=== PATIENT | female | born 1970 | race Caucasian/White ===

== ENCOUNTER 2017-10-15 17:44 | Inpatient (IN) | payer MEDICAID ==
[~2017-10-15] VITALS: Ht 154.9 cm; Wt 100.6 kg
[2017-10-15 19:43] LABS: PLATELET COUNT 286 x10^3mcL (130-400)
[2017-10-15 19:58] LABS: CALCIUM 7.7 mg/dL (8.5-10.1); CARBON DIOXIDE 20.9 mmol/L (21-32); CREATININE SERUM 1.5 mg/dL (0.6-1.0); POTASSIUM SERUM 3.5 mmol/L (3.5-5.1)
[2017-10-15 20:02] LABS: BILIRUBIN TOTAL 0.4 mg/dL (0.20-1.00); TOTAL PROTEIN, SERUM 6.4 g/dL (6.4-8.2)
[2017-10-15 20:03] LABS: ALBUMIN 2.3 g/dL (3.4-5.0)
[2017-10-15 20:16] LABS: RED CELL DISTRIBUTION WIDTH 17.4 % (11.5-14.5)
[2017-10-15 20:58] LABS: MONOCYTE 11 % (0-7); SEGMENTED NEUTROPHILS 82 % (37-75)
[2017-10-15 20:59] LABS: rbc morphology (normal/abnorm) ABNORMAL (NORMAL)
[2017-10-15 22:18] VITALS: BP 103/48
[2017-10-15 22:20] LABS: MAGNESIUM 1.5 mg/dL (1.8-2.4); PHOSPHOROUS 4.1 mg/dL (2.5-4.9)
[2017-10-15 22:28] LABS: T3 TOTAL 1.15 ng/mL
[2017-10-15 22:34] LABS: CHOLESTEROL/HDL RATIO 12.5
[2017-10-15 22:55] LABS: FREE T4 1.89 ng/dL (0.76-1.46); FREE THYROXINE INDEX 4.4 ug/dL (1.4-4.5); T4(THYROXINE) 12.6 ug/dL (4.7-13.3)
[2017-10-16] VITALS (10 sets, daily range): BP systolic 91–114; BP diastolic 32–69
[2017-10-16 06:42] LABS: CALCIUM 7.6 mg/dL (8.5-10.1); CARBON DIOXIDE 21.6 mmol/L (21-32); CREATININE SERUM 1.7 mg/dL (0.6-1.0)
[2017-10-16 07:47] LABS: UA SPECIFIC GRAVITY >=1.030 (1.005-1.035); microscopic required? YES; urine erythrocyte NEGATIVE (NEGATIVE)
[2017-10-16 07:57] LABS: PLATELET COUNT 345 x10^3mcL (130-400)
[2017-10-16 07:58] LABS: RED CELL DISTRIBUTION WIDTH 17.7 % (11.5-14.5)
[2017-10-16 08:14] LABS: AMPHETAMINE QUAL UR NONE DETECTED (NEG <=1000)
[2017-10-16 11:00] LABS: BASOPHIL 0 % (0-2); METAMYELOCTE 13 % (0-2); SEGMENTED NEUTROPHILS 23 % (37-75)
[2017-10-16 11:01] LABS: BAND NEUTROPHIL 55 % (0-10); MONOCYTE 2 % (0-7)
[2017-10-16 11:03] LABS: rbc morphology (normal/abnorm) ABNORMAL (NORMAL)
[2017-10-16 11:05] LABS: burr cell (echinocyte) 1+; target cell (codocyte) 1+
[2017-10-17] VITALS (10 sets, daily range): BP systolic 80–138; BP diastolic 33–80
[2017-10-17 04:35] LABS: PLATELET COUNT 368 x10^3mcL (130-400)
[2017-10-17 04:37] LABS: RED CELL DISTRIBUTION WIDTH 18.3 % (11.5-14.5)
[2017-10-17 04:41] LABS: CALCIUM 7.6 mg/dL (8.5-10.1); CARBON DIOXIDE 18.1 mmol/L (21-32); CREATININE SERUM 1.9 mg/dL (0.6-1.0); POTASSIUM SERUM 4.4 mmol/L (3.5-5.1)
[2017-10-17 05:00] LABS: BAND NEUTROPHIL 70 % (0-10); MONOCYTE 5 % (0-7); SEGMENTED NEUTROPHILS 20 % (37-75); rbc morphology (normal/abnorm) ABNORMAL (NORMAL)
[2017-10-17 05:01] LABS: PLATELET MORPHOLOGY PLATELETS NORMAL
[2017-10-17 06:52] LABS: MAGNESIUM 1.6 mg/dL (1.8-2.4); PHOSPHOROUS 5.8 mg/dL (2.5-4.9)
[2017-10-17 07:20] LABS: RED BLOOD CELLS 4.28 M/mm3 (4.10-5.10)
[2017-10-17 13:45] LABS: IRON 15 ug/dL (50-170); TOTAL IRON BINDING CAPACITY 185 ug/dL (250-450)
[2017-10-18] VITALS (17 sets, daily range): BP systolic 109–137; BP diastolic 52–85; Ht 154.9 cm; Wt 100.6 kg
[2017-10-18 05:59] LABS: CALCIUM 7.3 mg/dL (8.5-10.1); CARBON DIOXIDE 24.5 mmol/L (21-32); CREATININE SERUM 1.2 mg/dL (0.6-1.0); MAGNESIUM 2.8 mg/dL (1.8-2.4); PHOSPHOROUS 2.8 mg/dL (2.5-4.9); POTASSIUM SERUM 3.9 mmol/L (3.5-5.1)
[2017-10-18 06:00] LABS: PLATELET COUNT 274 x10^3mcL (130-400)
[2017-10-18 06:14] LABS: RED CELL DISTRIBUTION WIDTH 17.9 % (11.5-14.5)
[2017-10-18 08:21] LABS: BAND NEUTROPHIL 8 % (0-10); BASOPHIL 0 % (0-2); MONOCYTE 2 % (0-7)
[2017-10-18 08:23] LABS: SEGMENTED NEUTROPHILS 78 % (37-75)
[2017-10-18 08:24] LABS: PLATELET MORPHOLOGY PLATELETS NORMAL
[2017-10-18 08:25] LABS: rbc morphology (normal/abnorm) ABNORMAL (NORMAL)
[2017-10-18 08:26] LABS: target cell (codocyte) 1+
[2017-10-19] VITALS (13 sets, daily range): BP systolic 107–142; BP diastolic 51–75
[2017-10-19 05:19] LABS: CALCIUM 7.2 mg/dL (8.5-10.1); CARBON DIOXIDE 27.6 mmol/L (21-32); CHLORIDE SERUM 110 mmol/L (98-107); CREATININE SERUM 0.9 mg/dL (0.6-1.0); GFR1 > 60 mL/min; GLUCOSE SERUM 152 mg/dL (74-106); MAGNESIUM 2.6 mg/dL (1.8-2.4); PHOSPHOROUS 2.4 mg/dL (2.5-4.9); PLATELET COUNT 288 x10^3mcL (130-400); POTASSIUM SERUM 3.5 mmol/L (3.5-5.1); RED CELL DISTRIBUTION WIDTH 17.6 % (11.5-14.5); SODIUM SERUM 142 mmol/L (136-145)
[2017-10-19 09:00] LABS: BAND NEUTROPHIL 3 % (0-10); BASOPHIL 0 % (0-2); MONOCYTE 1 % (0-7); SEGMENTED NEUTROPHILS 91 % (37-75)
[2017-10-19 09:02] LABS: rbc morphology (normal/abnorm) ABNORMAL (NORMAL); schistocyte (helmet cell) 1+; target cell (codocyte) 3+
[2017-10-19 09:03] LABS: PLATELET MORPHOLOGY PLATELETS NORMAL
[2017-10-20 03:10] VITALS: BP 133/64
[2017-10-20 04:58] LABS: CALCIUM 7.8 mg/dL (8.5-10.1); CARBON DIOXIDE 30.2 mmol/L (21-32); CHLORIDE SERUM 108 mmol/L (98-107); CREATININE SERUM 0.8 mg/dL (0.6-1.0); GFR1 > 60 mL/min; GLUCOSE SERUM 151 mg/dL (74-106); MAGNESIUM 1.8 mg/dL (1.8-2.4); PHOSPHOROUS 3.5 mg/dL (2.5-4.9); POTASSIUM SERUM 3.5 mmol/L (3.5-5.1); SODIUM SERUM 143 mmol/L (136-145)
[2017-10-20 04:59] LABS: PLATELET COUNT 295 x10^3mcL (130-400)
[2017-10-20 05:52] VITALS: BP 114/54
[2017-10-20 05:56] LABS: RED CELL DISTRIBUTION WIDTH 18.1 % (11.5-14.5)
[2017-10-20 06:02] LABS: BAND NEUTROPHIL 4 % (0-10); BASOPHIL 0 % (0-2); METAMYELOCTE 1 % (0-2); MONOCYTE 6 % (0-7); SEGMENTED NEUTROPHILS 76 % (37-75); rbc morphology (normal/abnorm) ABNORMAL (NORMAL)
[2017-10-20 06:04] LABS: PLATELET MORPHOLOGY PLATELETS NORMAL; target cell (codocyte) 3+
[2017-10-20 08:34] VITALS: BP 127/73
[2017-10-20 13:00] VITALS: BP 113/60
[2017-10-20 17:03] VITALS: BP 126/50
[2017-10-20 20:55] VITALS: BP 117/53
[2017-10-21 05:40] VITALS: BP 133/58
[2017-10-21 07:50] LABS: CALCIUM 8.4 mg/dL (8.5-10.1); CARBON DIOXIDE 27.5 mmol/L (21-32); CHLORIDE SERUM 104 mmol/L (98-107); CREATININE SERUM 0.7 mg/dL (0.6-1.0); GFR1 > 60 mL/min; GLUCOSE SERUM 126 mg/dL (74-106); POTASSIUM SERUM 3.8 mmol/L (3.5-5.1); SODIUM SERUM 139 mmol/L (136-145)
[2017-10-21 08:03] LABS: PLATELET COUNT 296 x10^3mcL (130-400)
[2017-10-21 08:07] LABS: RED CELL DISTRIBUTION WIDTH 17.7 % (11.5-14.5)
[2017-10-21 08:38] VITALS: BP 132/54
[2017-10-21 11:29] LABS: BAND NEUTROPHIL 5 % (0-10); BASOPHIL 0 % (0-2); MONOCYTE 6 % (0-7); MYELOCYTE 2 % (0-2); SEGMENTED NEUTROPHILS 73 % (37-75); rbc morphology (normal/abnorm) ABNORMAL (NORMAL); target cell (codocyte) 1+
[2017-10-21 11:30] LABS: schistocyte (helmet cell) 1+
[2017-10-21 17:45] VITALS: BP 133/45
[2017-10-21 20:57] VITALS: BP 123/47
[2017-10-22 04:51] VITALS: BP 116/41
[2017-10-22 07:01] LABS: PLATELET COUNT 342 x10^3mcL (130-400)
[2017-10-22 07:10] LABS: CALCIUM 7.9 mg/dL (8.5-10.1); CARBON DIOXIDE 29.2 mmol/L (21-32); CHLORIDE SERUM 100 mmol/L (98-107); CREATININE SERUM 0.6 mg/dL (0.6-1.0); GFR1 > 60 mL/min; GLUCOSE SERUM 107 mg/dL (74-106); MAGNESIUM 1.7 mg/dL (1.8-2.4); PHOSPHOROUS 3.4 mg/dL (2.5-4.9); POTASSIUM SERUM 4.2 mmol/L (3.5-5.1); SODIUM SERUM 135 mmol/L (136-145)
[2017-10-22 07:16] LABS: RED CELL DISTRIBUTION WIDTH 17.5 % (11.5-14.5)
[2017-10-22 09:22] VITALS: BP 112/42
[2017-10-22 09:34] LABS: BAND NEUTROPHIL 10 % (0-10); BASOPHIL 0 % (0-2); MONOCYTE 6 % (0-7); SEGMENTED NEUTROPHILS 77 % (37-75)
[2017-10-22 09:39] LABS: rbc morphology (normal/abnorm) ABNORMAL (NORMAL); target cell (codocyte) 2+
[2017-10-22 09:40] LABS: PLATELET MORPHOLOGY GIANT PLATELET SEEN
[2017-10-22 17:45] VITALS: BP 118/50
[2017-10-22 21:23] VITALS: BP 116/59
[2017-10-23 06:00] VITALS: BP 109/69
[2017-10-23 07:01] LABS: CARBON DIOXIDE 29.6 mmol/L (21-32); CHLORIDE SERUM 101 mmol/L (98-107); CREATININE SERUM 0.7 mg/dL (0.6-1.0); GFR1 > 60 mL/min; GLUCOSE SERUM 100 mg/dL (74-106); MAGNESIUM 2.6 mg/dL (1.8-2.4); PHOSPHOROUS 3.6 mg/dL (2.5-4.9); POTASSIUM SERUM 4.5 mmol/L (3.5-5.1); SODIUM SERUM 135 mmol/L (136-145)
[2017-10-23 07:32] LABS: PLATELET COUNT 444 x10^3mcL (130-400); RED CELL DISTRIBUTION WIDTH 17.6 % (11.5-14.5)
[2017-10-23 10:22] LABS: BAND NEUTROPHIL 11 % (0-10); BASOPHIL 0 % (0-2); METAMYELOCTE 2 % (0-2); MONOCYTE 7 % (0-7); SEGMENTED NEUTROPHILS 68 % (37-75)
[2017-10-23 10:23] LABS: rbc morphology (normal/abnorm) ABNORMAL (NORMAL)
[2017-10-23 10:24] LABS: target cell (codocyte) 1+
[2017-10-23 16:53] VITALS: BP 137/79
[2017-10-23 22:00] VITALS: BP 132/45
[2017-10-24 05:25] VITALS: BP 111/37
[2017-10-24 06:24] LABS: CALCIUM 7.6 mg/dL (8.5-10.1); CARBON DIOXIDE 28.1 mmol/L (21-32); CHLORIDE SERUM 105 mmol/L (98-107); CREATININE SERUM 0.6 mg/dL (0.6-1.0); GFR1 > 60 mL/min; GLUCOSE SERUM 99 mg/dL (74-106); POTASSIUM SERUM 4.2 mmol/L (3.5-5.1); SODIUM SERUM 139 mmol/L (136-145)
[2017-10-24 07:12] LABS: PLATELET COUNT 577 x10^3mcL (130-400); RED CELL DISTRIBUTION WIDTH 17.4 % (11.5-14.5)
[2017-10-24 08:37] LABS: BAND NEUTROPHIL 1 % (0-10); MONOCYTE 8 % (0-7); SEGMENTED NEUTROPHILS 82 % (37-75); rbc morphology (normal/abnorm) ABNORMAL (NORMAL)
[2017-10-24 10:00] VITALS: BP 108/65
[2017-10-24 13:20] VITALS: BP 127/53
[2017-10-24 17:13] LABS: BASOPHIL % 0.6 % (0-2)
[2017-10-24 17:14] LABS: PLATELET COUNT 558 x10^3mcL (130-400); RED CELL DISTRIBUTION WIDTH 19.3 % (11.5-14.5)
[2017-10-24 18:02] VITALS: BP 127/53
[2017-10-25 06:32] VITALS: BP 119/44
[2017-10-25 07:14] LABS: BASOPHIL % 0.1 % (0-2)
[2017-10-25 07:32] LABS: CALCIUM 8.3 mg/dL (8.5-10.1); CARBON DIOXIDE 28.1 mmol/L (21-32); CHLORIDE SERUM 104 mmol/L (98-107); CREATININE SERUM 0.7 mg/dL (0.6-1.0); GFR1 > 60 mL/min; GLUCOSE SERUM 93 mg/dL (74-106); MAGNESIUM 2.3 mg/dL (1.8-2.4); PHOSPHOROUS 3.9 mg/dL (2.5-4.9); POTASSIUM SERUM 3.9 mmol/L (3.5-5.1); SODIUM SERUM 139 mmol/L (136-145)
[2017-10-25 07:51] LABS: RED CELL DISTRIBUTION WIDTH 20.1 % (11.5-14.5)
[2017-10-25 07:52] LABS: PLATELET COUNT 573 x10^3mcL (130-400); rbc morphology (normal/abnorm) ABNORMAL (NORMAL)
[2017-10-25 12:00] VITALS: BP 115/57
[2017-10-25 18:59] VITALS: BP 123/53
[2017-10-25 20:25] VITALS: BP 112/50
[2017-10-26 05:15] VITALS: BP 102/49
[2017-10-26 10:00] LABS: CALCIUM 8.3 mg/dL (8.5-10.1); CHLORIDE SERUM 101 mmol/L (98-107); CREATININE SERUM 0.7 mg/dL (0.6-1.0); GFR1 > 60 mL/min; GLUCOSE SERUM 113 mg/dL (74-106); SODIUM SERUM 136 mmol/L (136-145)
[2017-10-26 10:09] VITALS: BP 109/57
[2017-10-26 11:05] LABS: PLATELET COUNT 680 x10^3mcL (130-400); RED CELL DISTRIBUTION WIDTH 20.8 % (11.5-14.5)
[2017-10-26 12:16] LABS: rbc morphology (normal/abnorm) ABNORMAL (NORMAL)
[2017-10-26 13:33] VITALS: BP 112/66
[2017-10-26 16:55] VITALS: BP 113/52
[2017-10-26 21:03] VITALS: BP 131/37
[2017-10-27 05:18] VITALS: BP 98/40
[2017-10-27 06:41] LABS: BASOPHIL % 0.1 % (0-2)
[2017-10-27 06:56] LABS: CALCIUM 8.2 mg/dL (8.5-10.1); CARBON DIOXIDE 29.7 mmol/L (21-32); CHLORIDE SERUM 101 mmol/L (98-107); CREATININE SERUM 0.7 mg/dL (0.6-1.0); GFR1 > 60 mL/min; GLUCOSE SERUM 99 mg/dL (74-106); POTASSIUM SERUM 4.1 mmol/L (3.5-5.1); SODIUM SERUM 136 mmol/L (136-145)
[2017-10-27 06:58] LABS: RED CELL DISTRIBUTION WIDTH 20.7 % (11.5-14.5)
[2017-10-27 06:59] LABS: PLATELET COUNT 608 x10^3mcL (130-400)
[2017-10-27 07:00] LABS: rbc morphology (normal/abnorm) ABNORMAL (NORMAL)
[2017-10-27 09:50] VITALS: BP 112/58
[2017-10-27 13:54] VITALS: BP 115/48
[2017-10-27 17:16] VITALS: BP 133/70
[2017-10-27 21:35] VITALS: BP 120/60
[2017-10-28 05:15] VITALS: BP 114/56
[2017-10-28 06:38] LABS: CALCIUM 8.3 mg/dL (8.5-10.1); CARBON DIOXIDE 29.5 mmol/L (21-32); CHLORIDE SERUM 103 mmol/L (98-107); CREATININE SERUM 0.7 mg/dL (0.6-1.0); GFR1 > 60 mL/min; GLUCOSE SERUM 91 mg/dL (74-106); PHOSPHOROUS 3.2 mg/dL (2.5-4.9); POTASSIUM SERUM 3.9 mmol/L (3.5-5.1); SODIUM SERUM 139 mmol/L (136-145)
[2017-10-28 07:10] LABS: BASOPHIL % 0.1 % (0-2)
[2017-10-28 07:51] LABS: PLATELET COUNT 690 x10^3mcL (130-400)
[2017-10-28 08:51] LABS: rbc morphology (normal/abnorm) ABNORMAL (NORMAL); target cell (codocyte) 1+; tear drop cell (dacryocyte) 1+
[2017-10-28 09:45] VITALS: BP 118/58
[2017-10-28 12:48] VITALS: BP 137/43
[2017-10-28 16:38] VITALS: BP 124/59
[2017-10-28 21:28] VITALS: BP 122/50
[2017-10-29 06:04] VITALS: BP 126/56
[2017-10-29 08:56] LABS: BASOPHIL % 0.4 % (0-2)
[2017-10-29 09:04] LABS: PLATELET COUNT 661 x10^3mcL (130-400)
[2017-10-29 09:09] LABS: CARBON DIOXIDE 26.4 mmol/L (21-32); CHLORIDE SERUM 104 mmol/L (98-107); CREATININE SERUM 0.6 mg/dL (0.6-1.0); GFR1 > 60 mL/min; GLUCOSE SERUM 77 mg/dL (74-106); POTASSIUM SERUM 3.7 mmol/L (3.5-5.1); SODIUM SERUM 139 mmol/L (136-145)
[2017-10-29 09:40] VITALS: BP 121/58
[2017-10-29 12:06] LABS: rbc morphology (normal/abnorm) ABNORMAL (NORMAL); target cell (codocyte) 2+; tear drop cell (dacryocyte) 1+
[2017-10-29 16:57] VITALS: BP 121/53
[2017-10-29 21:42] VITALS: BP 119/46
[2017-10-30] VITALS (7 sets, daily range): BP systolic 115–147; BP diastolic 54–73
[2017-10-30 05:45] LABS: BASOPHIL % 2.7 % (0-2); RED CELL DISTRIBUTION WIDTH 24.3 % (11.5-14.5)
[2017-10-30 05:54] LABS: PLATELET COUNT 643 x10^3mcL (130-400)
[2017-10-30] MEDS ORDERED: XOP0.63 HHN (17:52)
[2017-10-30] MEDS ORDERED: KETOROLAC30 MG/ML PO (17:52)
[2017-10-30] MEDS ORDERED: LAC PO (17:53)
[2017-10-30] MEDS ORDERED: PRI20 PO (17:53)
[2017-10-30] MEDS ORDERED: ZOFRAN8 MG PO (17:54)
== END 2017-10-30 19:30 | disposition home or self-care (01) | DRG 227 ==
LOC: ED 17:44 → MU 20:53 → DU 20:53 → IC 10-17 13:58 → DU 10-20 05:39 → MU 10-20 12:32 → EDBD 10-30 19:30 → MU 10-30 19:30
PROVIDERS: Emergency Medicine; Internal Medicine Gastroenterology; Student in an Organized Health Care Education/Training Program; Surgery; ADMIT Family Medicine
PROC: 3E1M38Z Irrigation of Peritoneal Cavity using Irrigating Substance, Percutaneous Approach (ICD-10-PCS; 2017-10-17)
PROC: 05HM33Z Insertion of Infusion Device into Right Internal Jugular Vein, Percutaneous Approach (ICD-10-PCS; 2017-10-17)
PROC: B543ZZA Ultrasonography of Right Jugular Veins, Guidance (ICD-10-PCS; 2017-10-17)
PROC: 0W9G4ZZ Drainage of Peritoneal Cavity, Percutaneous Endoscopic Approach (ICD-10-PCS; principal; 2017-10-17 10:00)
PROC: 0DB78ZX Excision of Stomach, Pylorus, Via Natural or Artificial Opening Endoscopic, Diagnostic (ICD-10-PCS; 2017-10-25)
PROC: 0WQF0ZZ Repair Abdominal Wall, Open Approach (ICD-10-PCS; 2017-10-25 09:00)
PROC: 05HC33Z Insertion of Infusion Device into Left Basilic Vein, Percutaneous Approach (ICD-10-PCS; 2017-10-30)
PROC: B54NZZA Ultrasonography of Left Upper Extremity Veins, Guidance (ICD-10-PCS; 2017-10-30)
DX: K57.20 Diverticulitis of large intestine with perforation and abscess without bleeding (principal); E43 Unspecified severe protein-calorie malnutrition; N17.0 Acute kidney failure with tubular necrosis; Z68.41 Body mass index [BMI] 40.0-44.9, adult; A04.4 Other intestinal Escherichia coli infections; E11.51 Type 2 diabetes mellitus with diabetic peripheral angiopathy without gangrene; E66.01 Morbid (severe) obesity due to excess calories; T81.32XA Disruption of internal operation (surgical) wound, not elsewhere classified, initial encounter; B96.81 Helicobacter pylori [H. pylori] as the cause of diseases classified elsewhere; D50.9 Iron deficiency anemia, unspecified; E78.1 Pure hyperglyceridemia; Z16.12 Extended spectrum beta lactamase (ESBL) resistance; Y83.4 Other reconstructive surgery as the cause of abnormal reaction of the patient, or of later complication, without mention of misadventure at the time of the procedure; Y92.230 Patient room in hospital as the place of occurrence of the external cause
CPT/HCPCS: 36556; 36600; 43235; 82962; 83880; 84439; 90658; 94150; A4628; C1751; C9113; J0330; J0690; J1170; J1200; J1335; J1610; J1642; J1885; J1940; J1956; J2001; J2175; J2185; J2250; J2270; J2310; J2405; J2543; J2550; J2704; J2916; J3010; J3475; J3490; J7030; J7040; J7042; J7050; J7120; J7131; J7620; P9016; P9045; Q0092; Q9966; Q9967

== ENCOUNTER 2017-11-02 11:09 | Emergency (ER) | payer MEDICAID ==
[~2017-11-02] VITALS: Ht 162.6 cm; Wt 86.6 kg
[~2017-11-02 11:09] MED LIST: KETOROLAC30 MG/ML PO; LAC PO; PRI20 PO; XOP0.63 HHN; ZOFRAN8 MG PO
[2017-11-02 11:11] VITALS: Ht 162.6 cm; Wt 86.6 kg
[2017-11-02 12:30] VITALS: BP 143/65
== END 2017-11-02 12:48 | disposition home or self-care (01) ==
LOC: ED 11:09
DX: K57.92 Diverticulitis of intestine, part unspecified, without perforation or abscess without bleeding (principal); I10 Essential (primary) hypertension; Z98.890 Other specified postprocedural states
CPT/HCPCS: J1335

== ENCOUNTER 2017-11-03 10:52 | Emergency (ER) | payer MEDICAID ==
[2017-11-03 13:20] VITALS: BP 131/69
== END 2017-11-03 13:31 | disposition home or self-care (01) ==
LOC: ED 10:52
DX: R10.84 Generalized abdominal pain (principal); E86.0 Dehydration; R19.7 Diarrhea, unspecified; I10 Essential (primary) hypertension
CPT/HCPCS: J1335; J2405; J3010; J7030

== ENCOUNTER 2017-11-19 12:00 | Inpatient (IN) | payer BC ==
[~2017-11-19] VITALS: Ht 154.9 cm; Wt 83.0 kg
[2017-11-19 12:07] VITALS: Ht 154.9 cm; Wt 83.0 kg
[2017-11-19] MEDS ORDERED: AMOXICILLIN500 M1 PO (17:25)
[2017-11-19] MEDS ORDERED: BIAXIN FILMTAB500 MG PO (17:25)
[2017-11-19 17:44] LABS: BASOPHIL % 0.5 % (0-2)
[2017-11-19 18:01] LABS: FREE T4 1.22 ng/dL (0.76-1.46); FREE THYROXINE INDEX 3.5 ug/dL (1.4-4.5)
[2017-11-19 18:05] LABS: T3 TOTAL 1.1 ng/mL
[2017-11-19 18:08] LABS: PLATELET COUNT 438 x10^3mcL (130-400); RED CELL DISTRIBUTION WIDTH 27.7 % (11.5-14.5)
[2017-11-19 19:11] LABS: CALCIUM 8.1 mg/dL (8.5-10.1); CARBON DIOXIDE 29.3 mmol/L (21-32); CHLORIDE SERUM 104 mmol/L (98-107); CREATININE SERUM 0.7 mg/dL (0.6-1.0); GFR1 > 60 mL/min; GLUCOSE SERUM 83 mg/dL (74-106); POTASSIUM SERUM 3.7 mmol/L (3.5-5.1); SODIUM SERUM 139 mmol/L (136-145)
[2017-11-19 19:13] LABS: UA SPECIFIC GRAVITY >=1.030 (1.005-1.035); microscopic required? YES; urine erythrocyte NEGATIVE (NEGATIVE)
[2017-11-19 19:17] LABS: ALKALINE PHOSPHATASE 153 U/L (46-116); ALT/SGPT 39 U/L (14-59); AST/SGOT 50 U/L (15-37); BILIRUBIN TOTAL 0.2 mg/dL (0.20-1.00); CHOLESTEROL 137 mg/dL (<200); CHOLESTEROL/HDL RATIO 3.5; HDL CHOLESTEROL 39 mg/dL (40-60); LIPASE 485 IU/L (73-393); TOTAL PROTEIN, SERUM 6.5 g/dL (6.4-8.2); TRIGLYCERIDES 122 mg/dL (<150)
[2017-11-19 19:18] LABS: ALBUMIN 2.5 g/dL (3.4-5.0); MAGNESIUM 1.9 mg/dL (1.8-2.4); PHOSPHOROUS 3.5 mg/dL (2.5-4.9)
[2017-11-19 19:38] VITALS: BP 127/55
[2017-11-19 19:56] LABS: IRON 22 ug/dL (50-170); TOTAL IRON BINDING CAPACITY 190 ug/dL (250-450)
[2017-11-19 20:06] LABS: RED BLOOD CELLS 4.6 M/mm3 (4.10-5.10)
[2017-11-19 21:33] VITALS: BP 127/55
[2017-11-19 22:46] LABS: AMPHETAMINE QUAL UR NONE DETECTED (NEG <=1000)
[2017-11-20 04:48] VITALS: BP 107/54
[2017-11-20 06:52] LABS: CALCIUM 7.9 mg/dL (8.5-10.1); CARBON DIOXIDE 27.5 mmol/L (21-32); CHLORIDE SERUM 107 mmol/L (98-107); CREATININE SERUM 0.6 mg/dL (0.6-1.0); GFR1 > 60 mL/min; GLUCOSE SERUM 90 mg/dL (74-106); MAGNESIUM 1.9 mg/dL (1.8-2.4); PHOSPHOROUS 3.8 mg/dL (2.5-4.9); POTASSIUM SERUM 3.7 mmol/L (3.5-5.1); SODIUM SERUM 140 mmol/L (136-145)
[2017-11-20 06:53] LABS: BASOPHIL % 0.5 % (0-2); PLATELET COUNT 351 x10^3mcL (130-400); RED CELL DISTRIBUTION WIDTH 27.5 % (11.5-14.5)
[2017-11-20 06:54] LABS: rbc morphology (normal/abnorm) ABNORMAL (NORMAL)
[2017-11-20 09:40] VITALS: BP 122/62
[2017-11-20 13:02] VITALS: BP 111/60
[2017-11-20 17:10] VITALS: BP 124/52
[2017-11-20 22:10] VITALS: BP 118/58
[2017-11-21 06:47] VITALS: BP 125/51
[2017-11-21 06:53] LABS: CALCIUM 7.7 mg/dL (8.5-10.1); CHLORIDE SERUM 108 mmol/L (98-107); CREATININE SERUM 0.6 mg/dL (0.6-1.0); GFR1 > 60 mL/min; GLUCOSE SERUM 74 mg/dL (74-106); MAGNESIUM 1.9 mg/dL (1.8-2.4); PHOSPHOROUS 3.5 mg/dL (2.5-4.9); POTASSIUM SERUM 3.4 mmol/L (3.5-5.1); SODIUM SERUM 142 mmol/L (136-145)
[2017-11-21 06:57] LABS: BASOPHIL % 0.5 % (0-2); PLATELET COUNT 324 x10^3mcL (130-400)
[2017-11-21 08:36] LABS: rbc morphology (normal/abnorm) ABNORMAL (NORMAL)
[2017-11-21 09:20] VITALS: BP 123/55
[2017-11-21 13:19] VITALS: BP 120/61
[2017-11-21 16:52] VITALS: BP 140/80
[2017-11-21 22:22] VITALS: BP 108/58
[2017-11-22 06:27] LABS: BASOPHIL % 0.5 % (0-2); PLATELET COUNT 338 x10^3mcL (130-400)
[2017-11-22 06:34] VITALS: BP 119/68
[2017-11-22 06:40] LABS: CALCIUM 8.4 mg/dL (8.5-10.1); CARBON DIOXIDE 24.1 mmol/L (21-32); CHLORIDE SERUM 106 mmol/L (98-107); CREATININE SERUM 0.5 mg/dL (0.6-1.0); GFR1 > 60 mL/min; GLUCOSE SERUM 81 mg/dL (74-106); MAGNESIUM 1.8 mg/dL (1.8-2.4); PHOSPHOROUS 3.1 mg/dL (2.5-4.9); POTASSIUM SERUM 3.5 mmol/L (3.5-5.1); SODIUM SERUM 138 mmol/L (136-145)
[2017-11-22 06:48] LABS: RED CELL DISTRIBUTION WIDTH 27.7 % (11.5-14.5)
[2017-11-22 06:49] LABS: rbc morphology (normal/abnorm) ABNORMAL (NORMAL)
[2017-11-22 09:35] VITALS: BP 118/63
[2017-11-22] MEDS ORDERED: FERG PO (12:26)
[2017-11-22] MEDS ORDERED: VITC PO (12:26)
[2017-11-22 12:29] VITALS: BP 118/63
[2017-11-22 12:35] VITALS: BP 116/62
[2017-11-22] MEDS ORDERED: APAP/HYDROCODON1 T13 PO (14:50)
== END 2017-11-22 16:10 | disposition home or self-care (01) | DRG 388 ==
LOC: ED 12:00 → DU 18:10
PROVIDERS: Family Medicine; Internal Medicine Gastroenterology; Specialist
PROC: 0DBN8ZX Excision of Sigmoid Colon, Via Natural or Artificial Opening Endoscopic, Diagnostic (ICD-10-PCS; principal; 2017-11-21 12:30)
DX: K56.609 Unspecified intestinal obstruction, unspecified as to partial versus complete obstruction (principal); N17.0 Acute kidney failure with tubular necrosis; E43 Unspecified severe protein-calorie malnutrition; D12.5 Benign neoplasm of sigmoid colon; K64.9 Unspecified hemorrhoids; R80.9 Proteinuria, unspecified; E66.9 Obesity, unspecified; Z68.35 Body mass index [BMI] 35.0-35.9, adult; I10 Essential (primary) hypertension; D64.9 Anemia, unspecified; N70.93 Salpingitis and oophoritis, unspecified
CPT/HCPCS: 45378; 83880; 84439; 87046; 87046-59; J1200; J1610; J2250; J2310; J2405; J2543; J2916; J3010; J3490; J7030; Q0092

== ENCOUNTER 2017-12-27 12:19 | Emergency (ER) | payer OTHER ==
[~2017-12-27] VITALS: Ht 154.9 cm; Wt 80.7 kg
[~2017-12-27 12:19] MED LIST changes: +AMOXICILLIN500 M1 PO; +APAP/HYDROCODON1 T13 PO; +BIAXIN FILMTAB500 MG PO; +FERG PO; +VITC PO
[2017-12-27 12:45] VITALS: Ht 154.9 cm; Wt 80.7 kg
[2017-12-27 14:00] LABS: BASOPHIL % 0.3 % (0-2); PLATELET COUNT 372 x10^3mcL (130-400)
[2017-12-27 14:07] LABS: CALCIUM 8.8 mg/dL (8.5-10.1); CARBON DIOXIDE 26.1 mmol/L (21-32); CHLORIDE SERUM 101 mmol/L (98-107); CREATININE SERUM 0.8 mg/dL (0.6-1.0); GFR1 > 60 mL/min; GLUCOSE SERUM 98 mg/dL (74-106); POTASSIUM SERUM 4.2 mmol/L (3.5-5.1); SODIUM SERUM 136 mmol/L (136-145)
[2017-12-27 14:08] LABS: RED CELL DISTRIBUTION WIDTH 21.1 % (11.5-14.5)
[2017-12-27 14:12] LABS: ALKALINE PHOSPHATASE 147 U/L (46-116); ALT/SGPT 48 U/L (14-59); AST/SGOT 45 U/L (15-37); BILIRUBIN TOTAL 0.2 mg/dL (0.20-1.00); TOTAL PROTEIN, SERUM 7.8 g/dL (6.4-8.2)
[2017-12-27 14:13] LABS: ALBUMIN 3.1 g/dL (3.4-5.0)
[2017-12-27 14:42] LABS: rbc morphology (normal/abnorm) ABNORMAL (NORMAL)
[2017-12-27 16:00] VITALS: BP 113/67
== END 2017-12-27 16:00 | disposition left against medical advice (07) ==
LOC: ED 12:19 → DU 14:53 → ED 14:53
PROVIDERS: Emergency Medicine
DX: C18.7 Malignant neoplasm of sigmoid colon (principal); K62.5 Hemorrhage of anus and rectum; R53.1 Weakness; I10 Essential (primary) hypertension
CPT/HCPCS: 83880; 84439; J7030

== ENCOUNTER 2018-01-12 11:55 | Emergency (ER) | payer OTHER ==
[~2018-01-12] VITALS: Ht 154.9 cm; Wt 79.8 kg
[2018-01-12 12:09] VITALS: Ht 154.9 cm; Wt 79.8 kg
[2018-01-12 14:59] LABS: CALCIUM 7.9 mg/dL (8.5-10.1); CARBON DIOXIDE 27.9 mmol/L (21-32); CHLORIDE SERUM 96 mmol/L (98-107); CREATININE SERUM 0.8 mg/dL (0.6-1.0); GFR1 > 60 mL/min; GLUCOSE SERUM 102 mg/dL (74-106); POTASSIUM SERUM 3.4 mmol/L (3.5-5.1); SODIUM SERUM 133 mmol/L (136-145)
[2018-01-12 15:01] LABS: ALKALINE PHOSPHATASE 183 U/L (46-116); ALT/SGPT 53 U/L (14-59); AST/SGOT 79 U/L (15-37); BILIRUBIN TOTAL 0.3 mg/dL (0.20-1.00); TOTAL PROTEIN, SERUM 7.1 g/dL (6.4-8.2)
[2018-01-12 15:04] LABS: FREE T4 1.59 ng/dL (0.76-1.46); FREE THYROXINE INDEX 3.4 ug/dL (1.4-4.5)
[2018-01-12 15:10] LABS: T3 TOTAL 0.76 ng/mL
[2018-01-12 15:13] LABS: RED CELL DISTRIBUTION WIDTH 19.1 % (11.5-14.5)
[2018-01-12 15:30] LABS: microscopic required? YES; urine erythrocyte NEGATIVE (NEGATIVE)
[2018-01-12 15:38] LABS: C REACTIVE PROTEIN 30.5 mg/dL (<=0.9)
[2018-01-12 15:43] LABS: CK-MB < 0.5 ng/mL (0-3.6); CREATINE KINASE 18 U/L (26-192)
[2018-01-12 15:44] LABS: BAND NEUTROPHIL 0 % (0-10); BASOPHIL 0 % (0-2); MONOCYTE 3 % (0-7); PLATELET MORPHOLOGY PLATELETS INCREASED; SEGMENTED NEUTROPHILS 92 % (37-75); rbc morphology (normal/abnorm) ABNORMAL (NORMAL)
[2018-01-12 15:55] LABS: ERYTHROCYTE SED RATE 116 mm/hr (0-20)
[2018-01-12 15:58] LABS: PLATELET COUNT 746 x10^3mcL (130-400)
[2018-01-12 16:56] LABS: AMPHETAMINE QUAL UR NONE DETECTED (NEG <=1000)
[2018-01-12 16:57] LABS: MAGNESIUM 2.2 mg/dL (1.8-2.4); PHOSPHOROUS 3.3 mg/dL (2.5-4.9)
[2018-01-12 16:58] LABS: CHOLESTEROL/HDL RATIO 5.1
[2018-01-12 17:44] VITALS: BP 107/63
== END 2018-01-12 17:44 | disposition left against medical advice (07) ==
LOC: ED 11:55 → DU 16:29 → ED 16:29 → DU 17:44
PROVIDERS: Family Medicine; Specialist
PROC: 3E03329 Introduction of Other Anti-infective into Peripheral Vein, Percutaneous Approach (ICD-10-PCS; principal; 2018-01-12)
PROC: 3E033NZ Introduction of Analgesics, Hypnotics, Sedatives into Peripheral Vein, Percutaneous Approach (ICD-10-PCS; 2018-01-12)
PROC: 3E033GC Introduction of Other Therapeutic Substance into Peripheral Vein, Percutaneous Approach (ICD-10-PCS; 2018-01-12)
PROC: BW21ZZZ Computerized Tomography (CT Scan) of Abdomen and Pelvis (ICD-10-PCS; 2018-01-12)
DX: L02.211 Cutaneous abscess of abdominal wall (principal); K57.80 Diverticulitis of intestine, part unspecified, with perforation and abscess without bleeding; C18.9 Malignant neoplasm of colon, unspecified; R65.10 Systemic inflammatory response syndrome (SIRS) of non-infectious origin without acute organ dysfunction
CPT/HCPCS: 36600; 83880; 84439; C9113; J1885; J1956; J2405; J2543; J3010; J3490; J7030; Q0092

== ENCOUNTER 2019-02-05 23:13 | Emergency (ER) | payer OTHER ==
[~2019-02-05] VITALS: Ht 154.9 cm; Wt 72.6 kg
[2019-02-05 23:23] VITALS: Ht 154.9 cm; Wt 72.6 kg
[2019-02-06 00:20] VITALS: BP 110/67
== END 2019-02-06 00:20 | disposition home or self-care (01) ==
LOC: ED 23:13
DX: Z46.59 Encounter for fitting and adjustment of other gastrointestinal appliance and device (principal); I10 Essential (primary) hypertension; Z85.038 Personal history of other malignant neoplasm of large intestine; Z48.01 Encounter for change or removal of surgical wound dressing

== ENCOUNTER 2019-12-03 12:09 | Inpatient (IN) | payer MEDICAID ==
[~2019-12-03] VITALS: Ht 154.9 cm; Wt 63.7 kg
[2019-12-03 12:17] VITALS: Ht 154.9 cm; Wt 63.7 kg
[2019-12-03 14:04] LABS: BASOPHIL % 0.4 % (0-2); PLATELET COUNT 145 x10^3mcL (130-400)
[2019-12-03 14:06] LABS: RED CELL DISTRIBUTION WIDTH 16.2 % (11.5-14.5)
[2019-12-03 15:33] LABS: CHLORIDE SERUM 105 mmol/L (98-107); GLUCOSE SERUM 81 mg/dL (74-106); SODIUM SERUM 138 mmol/L (136-145)
[2019-12-03 15:34] LABS: ALBUMIN 2.8 g/dL (3.4-5.0); ALKALINE PHOSPHATASE 519 U/L (46-116); ALT/SGPT 49 U/L (14-59); AST/SGOT 97 U/L (15-37); BILIRUBIN TOTAL 0.7 mg/dL (0.20-1.00); CALCIUM 8.5 mg/dL (8.5-10.1); CREATININE SERUM 0.7 mg/dL (0.6-1.0); GFR1 > 60 mL/min; TOTAL PROTEIN, SERUM 7.9 g/dL (6.4-8.2)
[2019-12-03 18:12] VITALS: BP 124/52
[2019-12-03] MEDS ORDERED: STIVARGA PO (18:28)
[2019-12-03 20:03] VITALS: BP 103/52
[2019-12-04 05:22] VITALS: BP 119/47
[2019-12-04 06:56] LABS: BASOPHIL % 0.5 % (0-2)
[2019-12-04 07:05] LABS: PLATELET COUNT 125 x10^3mcL (130-400); RED CELL DISTRIBUTION WIDTH 16.4 % (11.5-14.5)
[2019-12-04 07:13] LABS: CARBON DIOXIDE 25 mmol/L (21-32); CHLORIDE SERUM 108 mmol/L (98-107); POTASSIUM SERUM 3.8 mmol/L (3.5-5.1); SODIUM SERUM 139 mmol/L (136-145)
[2019-12-04 07:17] LABS: CALCIUM 8.1 mg/dL (8.5-10.1); CREATININE SERUM 0.6 mg/dL (0.6-1.0); GFR1 > 60 mL/min; GLUCOSE SERUM 87 mg/dL (74-106)
[2019-12-04 08:00] VITALS: BP 91/32
[2019-12-04 11:46] VITALS: BP 96/48
[2019-12-04 16:38] VITALS: BP 96/50
[2019-12-04 20:35] VITALS: BP 112/63
[2019-12-05 05:33] VITALS: BP 95/35
[2019-12-05 08:17] VITALS: BP 111/54
[2019-12-05 12:08] VITALS: BP 112/46
[2019-12-05 13:54] LABS: BASOPHIL % 0.2 % (0-2)
[2019-12-05 14:02] LABS: PLATELET COUNT 127 x10^3mcL (130-400); RED CELL DISTRIBUTION WIDTH 16.9 % (11.5-14.5)
[2019-12-05 16:45] VITALS: BP 118/44
[2019-12-05 20:35] VITALS: BP 125/65
[2019-12-06 05:40] VITALS: BP 100/52
[2019-12-06 08:37] VITALS: BP 106/48
[2019-12-06 12:16] VITALS: BP 92/45
[2019-12-06 15:40] VITALS: BP 92/45
== END 2019-12-06 17:00 | disposition home or self-care (01) | DRG 253 ==
LOC: ED 12:09 → DU 17:02 → MU 17:02 → DU 17:25 → MU 12-05 13:21
PROVIDERS: Internal Medicine Gastroenterology; Specialist; ADMIT Internal Medicine
PROC: 0DB68ZX Excision of Stomach, Via Natural or Artificial Opening Endoscopic, Diagnostic (ICD-10-PCS; principal; 2019-12-04 14:00)
PROC: 0DBP8ZX Excision of Rectum, Via Natural or Artificial Opening Endoscopic, Diagnostic (ICD-10-PCS; 2019-12-04 14:00)
DX: K92.2 Gastrointestinal hemorrhage, unspecified (principal); E43 Unspecified severe protein-calorie malnutrition; C78.7 Secondary malignant neoplasm of liver and intrahepatic bile duct; K91.2 Postsurgical malabsorption, not elsewhere classified; C18.9 Malignant neoplasm of colon, unspecified; D50.0 Iron deficiency anemia secondary to blood loss (chronic); D37.5 Neoplasm of uncertain behavior of rectum; I10 Essential (primary) hypertension; Z22.322 Carrier or suspected carrier of Methicillin resistant Staphylococcus aureus; Z90.49 Acquired absence of other specified parts of digestive tract; Z79.899 Other long term (current) drug therapy; Z68.27 Body mass index [BMI] 27.0-27.9, adult
CPT/HCPCS: 43235; 45378; G0378; J1200; J1610; J2250; J2310; J2916; J3010; J3490; J7042; Q0092; Q9967

== ENCOUNTER 2020-04-22 09:02 | Inpatient (IN) | payer BC ==
[~2020-04-22] VITALS: Ht 154.9 cm; Wt 59.9 kg
[~2020-04-22 09:02] MED LIST changes: +STIVARGA PO
[2020-04-22 09:11] VITALS: Ht 154.9 cm; Wt 59.9 kg
[2020-04-22 10:28] LABS: CALCIUM 8.5 mg/dL (8.5-10.1); CARBON DIOXIDE 23.6 mmol/L (21-32); CHLORIDE SERUM 93 mmol/L (98-107); CREATININE SERUM 0.9 mg/dL (0.6-1.0); GFR1 > 60 mL/min; GLUCOSE SERUM 142 mg/dL (74-106); POTASSIUM SERUM 4.8 mmol/L (3.5-5.1); SODIUM SERUM 125 mmol/L (136-145)
[2020-04-22 10:34] LABS: ALKALINE PHOSPHATASE 995 U/L (46-116); ALT/SGPT 69 U/L (14-59); AST/SGOT 360 U/L (15-37); BILIRUBIN TOTAL 4.7 mg/dL (0.20-1.00); TOTAL PROTEIN, SERUM 7.4 g/dL (6.4-8.2)
[2020-04-22 11:43] LABS: PLATELET COUNT 296 x10^3mcL (130-400)
[2020-04-22 11:48] LABS: RED CELL DISTRIBUTION WIDTH 23.6 % (11.5-14.5)
[2020-04-22] MEDS ORDERED: PERCOCET1 TAB PO (11:59)
[2020-04-22] MEDS ORDERED: ZOFRAN8 MG PO (12:00)
[2020-04-22 15:08] VITALS: BP 94/35
[2020-04-22 16:57] VITALS: BP 95/51
[2020-04-22 21:26] VITALS: BP 111/60
[2020-04-23 06:28] VITALS: BP 97/46
[2020-04-23 07:39] LABS: CHLORIDE SERUM 96 mmol/L (98-107); CREATININE SERUM 0.8 mg/dL (0.6-1.0); GFR1 > 60 mL/min; GLUCOSE SERUM 91 mg/dL (74-106); POTASSIUM SERUM 4.8 mmol/L (3.5-5.1); SODIUM SERUM 127 mmol/L (136-145)
[2020-04-23 07:41] LABS: PLATELET COUNT 293 x10^3mcL (130-400)
[2020-04-23 07:58] VITALS: BP 97/47
[2020-04-23 12:34] VITALS: BP 100/40
[2020-04-23 14:26] LABS: RED CELL DISTRIBUTION WIDTH 23.8 % (11.5-14.5)
[2020-04-23 14:32] LABS: MONOCYTE 5 % (0-7); SEGMENTED NEUTROPHILS 93 % (37-75)
[2020-04-23 14:33] LABS: PLATELET MORPHOLOGY PLATELETS INCREASED; rbc morphology (normal/abnorm) ABNORMAL (NORMAL)
[2020-04-23 17:10] VITALS: BP 96/43
[2020-04-23 21:46] VITALS: BP 113/42
[2020-04-24 05:22] VITALS: BP 103/46
[2020-04-24 06:17] LABS: PLATELET COUNT 273 x10^3mcL (130-400)
[2020-04-24 06:36] LABS: CALCIUM 8.2 mg/dL (8.5-10.1); CARBON DIOXIDE 22.8 mmol/L (21-32); CHLORIDE SERUM 98 mmol/L (98-107); CREATININE SERUM 0.7 mg/dL (0.6-1.0); GFR1 > 60 mL/min; GLUCOSE SERUM 81 mg/dL (74-106); POTASSIUM SERUM 4.8 mmol/L (3.5-5.1); SODIUM SERUM 127 mmol/L (136-145)
[2020-04-24 07:40] LABS: RED CELL DISTRIBUTION WIDTH 23.8 % (11.5-14.5)
[2020-04-24 08:15] VITALS: BP 99/50
[2020-04-24 12:14] VITALS: BP 94/55
[2020-04-24 12:44] LABS: rbc morphology (normal/abnorm) ABNORMAL (NORMAL)
[2020-04-24 13:02] LABS: target cell (codocyte) 1+
[2020-04-24 14:06] LABS: BAND NEUTROPHIL 6 % (0-10); BASOPHIL 0 % (0-2); MONOCYTE 2 % (0-7); SEGMENTED NEUTROPHILS 90 % (37-75)
[2020-04-24 16:43] VITALS: BP 98/47
[2020-04-24 21:31] VITALS: BP 107/35
[2020-04-25 05:12] VITALS: BP 101/41
[2020-04-25 07:09] LABS: CALCIUM 7.9 mg/dL (8.5-10.1); CHLORIDE SERUM 100 mmol/L (98-107); CREATININE SERUM 0.7 mg/dL (0.6-1.0); GFR1 > 60 mL/min; GLUCOSE SERUM 92 mg/dL (74-106); POTASSIUM SERUM 4.7 mmol/L (3.5-5.1); SODIUM SERUM 131 mmol/L (136-145)
[2020-04-25 08:42] VITALS: BP 101/55
[2020-04-25 13:02] VITALS: BP 105/48
[2020-04-25 13:29] LABS: PLATELET COUNT 298 x10^3mcL (130-400)
[2020-04-25 14:03] LABS: RED CELL DISTRIBUTION WIDTH 24.8 % (11.5-14.5)
== END 2020-04-25 16:28 | disposition home or self-care (01) | DRG 378 ==
LOC: ED 09:02 → DU 12:24
PROVIDERS: Emergency Medicine; ADMIT Internal Medicine; ATTEND Internal Medicine
DX: K92.2 Gastrointestinal hemorrhage, unspecified (principal); E87.1 Hypo-osmolality and hyponatremia; C18.9 Malignant neoplasm of colon, unspecified; D50.9 Iron deficiency anemia, unspecified; I10 Essential (primary) hypertension; Z90.49 Acquired absence of other specified parts of digestive tract; Z79.899 Other long term (current) drug therapy
CPT/HCPCS: G0378; J2270; J2405; J2916; J3490; J7030; J7042; Q0162